=== PATIENT | female | born 1965 | race Caucasian/White ===

== ENCOUNTER 2023-12-16 12:42 | Emergency (ER) | payer BC, SELFPAY ==
[2023-12-16 12:52] VITALS: BP 157/84; PULSE 95; RESP 16; TEMP 37.3; O2SAT 100
--- NOTE | 2023-12-16 13:45 | ED.URI ---
HPI - URI/Sore Throat General Chief Complaint: Upper Respiratory Infection Stated Complaint: Sinus Time Seen by Provider: 12/16/23 13:45 Source: patient Mode of arrival: ambulatory Limitations: no limitations History of Present Illness HPI Narrative: 58-year-old female presents with complaint of nasal congestion, sinus pressure, postnasal drainage, intermittent sore throat and coughing for the past 3 weeks. Patient states that she tested positive for COVID and symptoms never improved. patient reports worsening of headache, sinus pressure, sore throat. exposure to strep throat by grandson. All systems reviewed and negative except as noted above. Related Data Home Medications Medication Instructions Recorded Confirmed bupropion HCl 150 mg tablet,12 hr 150 mg PO BID 11/15/23 12/16/23 sustained-release (Wellbutrin SR) hydrochlorothiazide 12.5 mg capsule 12.5 mg PO DAILY 11/15/23 12/16/23 levothyroxine 88 mcg tablet 88 mcg PO DAILY 11/15/23 12/16/23 (Synthroid) mecobalamin (vitamin B12) 1,000 1,000 mcg sublingual DAILY 11/15/23 12/16/23 mcg disintegrating tablet,sublingual metformin 500 mg tablet,extended 500 mg PO BID 11/15/23 12/16/23 release 24 hr omega 6-sud-day-fish oil 1,200 mg cap PO 11/15/23 (144 mg-216 mg) capsule sertraline 100 mg tablet 100 mg PO DAILY 11/15/23 12/16/23 Allergies Allergy/AdvReac Type Severity Reaction Status Date / Time erythromycin base AdvReac Mild nausea Verified 11/15/23 11:15 Review of Systems Review of Systems: CONSTITUTIONAL: Denies fever, chills, or sweats. reports fatigue. EYES: Denies visual changes, redness, or discharge. ENT: Reports rhinorrhea, congestion, sore throat, sinus pressure. Denies otalgia. CARDIOVASCULAR: Denies chest pain, palpitations, or edema. RESPIRATORY: Denies cough or dyspnea. GASTROINTESTINAL: Denies abdominal pain, nausea, vomiting, or diarrhea. GENITOURINARY: Denies dysuria or hematuria. SKIN: Denies rash or itching. MUSCULOSKELETAL: Denies back pain, joint pain, or myalgia. NEUROLOGIC: Denies headache, numbness, or weakness. PSYCHIATRIC: Denies anxiety or depression. All other systems reviewed are negative, except as documented in HPI. [facility] Past Medical History Medical History Allergies Anxiety History of hypertension Thyroid disorder Family History Family History Father Diabetes mellitus Heart disease Mother Thyroid disease Social History Social History Smoking status: Never smoker Alcohol intake: current Drinks per week: 1 Alcohol use details: social Substance use: never Substance use type: does not use Comments At time of signature, agree with nursing past medical, surgical, social and family history. There is no relevant family history pertinent to the presenting complaint. Exam Narrative: GENERAL: This is a well-nourished, well-developed patient, in no apparent distress. HEAD: normocephalic, atraumatic. EYES: PERRL. Sclera clear/white. Vision is grossly intact. EARS: External ears normal, auditory canals clear and without drainage, Fluid to bilateral TMs without erythema or perforation. Hearing grossly intact. NOSE: External nose normal with Congestion, erythema and swelling to bilateral nares. Bilateral maxillary sinus tenderness on palpation. THROAT: Mucous membranes moist, Erythema with postnasal drainage. NECK: Neck supple, non-tender without lymphadenopathy, masses or thyromegaly. CARDIOVASCULAR: Regular rate and rhythm without murmurs, gallops, or rubs. RESPIRATORY: Clear to auscultation. Breath sounds equal bilaterally. No wheezes, rales, or rhonchi. SKIN: warm, Dry, intact with no suspicious lesions or rash, good texture and turgor. NEURO: awake, alert, and oriented to person, place and time. There were no obv
== END 2023-12-16 13:54 | disposition home or self-care (01) ==
PROVIDERS: Emergency Provider Nurse Practitioner Family; PCP Family Medicine
DX: J01.90 Acute sinusitis, unspecified (principal); I10 Essential (primary) hypertension; F41.9 Anxiety disorder, unspecified; E07.9 Disorder of thyroid, unspecified
CPT/HCPCS: 87081; 87880; 99213; G0463